=== PATIENT | male | born 1990 | race Caucasian/White ===

== ENCOUNTER → 2017-01-20 | Outpatient (CLI) | payer OTHER ==
--- NOTE | 2017-01-25 13:31 | Sleep Study ---
Sleep Study Report Date of Service: 01/20/2017 Sleep Study Report Clinical data: The patient is a 26-year-old male who was referred for a diagnostic sleep study. He has complaints of fatigue. He feels that he requires 10 hours of sleep to feel and function as a human. He had a baseline home sleep study done 7 months ago in [place]. That was negative by report. This was an in-lab diagnostic sleep study. His BMI is 24.89. Patient carries a diagnosis of ADHD. Sleep architecture: The total sleep period was 408.0 minutes. The total sleep time was 350.0 minutes. Sleep efficiency was mildly reduced to 81 percent. The sleep latency was mildly prolonged at 24.5 minutes. Wake after sleep onset was 58 minutes. REM latency was normal at 60.5 minutes. There were 3 REM periods during the night. Sleep consisted of stage N1 4 percent, stage N2 63 percent, stage N3 18 percent, and stage REM 14 percent. Arousal data: The patient had a total of 44 arousals including 38 spontaneous arousals, 5 PLM arousals, and 1 snoring arousal. The arousal index is 8. PLM data: The patient had a total of 46 periodic limb movements of sleep for a PLM index of 7.9. There were 5 arousals associated with limb movements for a PLM arousal index of 0.9. EKG: The underlying cardiac rhythm was normal sinus. The cardiac rates ranged from 46 to 97 beats per minute. The average heart rate was 56 beats per minute. No a arrhythmias were noted. Respiratory data: The patient had a total of 7 respiratory events, all hypopneas. Hypopneas were scored according to the 4 percent desaturation rule. The mean duration of the hypopneas was 21 seconds. The apnea-hypopnea index was 1.2 which would be within the limits of normal. This would not suggest any significant sleep apnea. Oximetry data: The average saturation was 94 percent. The minimum saturation was 85 percent. There was just 1 brief desaturation with the total time less than 89 percent of 0.9 minutes. Bread Room Hand comments: The patient slept on the right, left, and supine positions. No cardiac arrhythmias noted. No bruxism noted. Snoring was noted and scored as a 1 on a scale of 1 through 5. The patient awaken to use the restroom 1 time during the night. Impressions: 1. No evidence of significant sleep apnea 2. Mild snoring Comments: This study showed no significant sleep apnea. His apnea-hypopnea index was normal at 1.2. The sleep efficiency was mildly reduced. For the most part his sleep was well consolidated. He did have 1 prolonged episode of wake in the middle of the night. He had 1 very transient event of oxygen desaturation. For almost all the night his saturations stayed normal. This study does not answer the question as to why the patient has fatigue and daytime somnolence. We do not know if his [place] Sleepiness Scale score is significantly elevated.In any young person who is excessively sleepy consideration may need to be given to the possibility of narcolepsy. Symptoms that may suggest narcolepsy could include cataplexy, sleep paralysis, nocturnal hallucinations, and a significantly elevated [place] sleepiness score. If narcolepsy were a consideration the patient would need to have a repeat overnight nocturnal sleep study to be followed by multiple sleep latency testing. It is noted that the patient is on Vyvanse. He would need to be off of that medication for at least a week or more before doing multiple sleep latency testing. Recommendations: 1. The patient should follow up with his referring provider. 2. If the patient has a significantly elevated [place] sleepiness score and if he would have symptoms correlating with narcolepsy such as cataplexy, nocturnal hallucinations, or sleep paralysis, consideration is given to a repeat overnight sleep study to be followed by multiple sleep latency testing. Vyvanse would need to be held for at least 1 week. 3. Patient should be advised the appropriate principles of sleep hygiene including having a regular sleep-wake schedule and allowing sufficient sleep time. Copies To 1: Chavo Morillo DO; Izabella Jean PA-C
== END | disposition home or self-care (01) ==
LOC: C.NEUR 21:00
PROVIDERS: ATTEND Obstetrics & Gynecology
DX: R53.82 Chronic fatigue, unspecified (principal)